=== PATIENT | female | born 1955 | race Caucasian/White ===

== ENCOUNTER 2019-01-10 18:30 | Emergency (ER) | payer OTHER ==
[2019-01-10] MEDS: KETOROLAC 30 MG INJ IM (19:01)
[2019-01-10] MEDS ORDERED: ONDANSETRON 4 MG INJ (19:37)
[2019-01-10] MEDS: HYDROmorphONE 1 MG/ML SYG IV (19:39)
[2019-01-10] MEDS: SOD CHLORIDE 0.9% 500 ML IV (19:39)
== END 2019-01-10 20:20 | disposition home or self-care (01) ==
LOC: E/R 18:30
DX: S42.442A Displaced fracture (avulsion) of medial epicondyle of left humerus, initial encounter for closed fracture (principal); W01.0XXA Fall on same level from slipping, tripping and stumbling without subsequent striking against object, initial encounter; Y92.89 Other specified places as the place of occurrence of the external cause
CPT/HCPCS: 73060; 73080-LT; 96372; 96374; 99284-25